=== PATIENT | male | born 1960 | race Caucasian/White ===

== ENCOUNTER 2017-07-26 12:43 | Emergency (ER) | payer OTHER ==
--- NOTE | 2017-07-26 14:33 | ER Document Report ---
HPI - HPI Patient complains to provider of: posterior knee and calf pain Pain Level: 3 Context: Patient is a 56-year-old male presents emergency room complaining of left posterior knee and calf pain. Patient states that he was pushing a truck out of a ditch when he felt some pain and a pop in his posterior knee. Able to fully extend and bend his knee with pain in his posterior calf. Patient states he is able to bear weight on it but with pain. Otherwise healthy male. Follows with Dr. Méndez Past Medical History - Social History Smoking Status: Never Smoker Family History: Reviewed & Not Pertinent Vertical Provider Document - CONSTITUTIONAL Agree With Documented VS: Yes Notes: PHYSICAL EXAM GENERAL: Alert, interacts well. EXTREMITIES: Moves all 4 extremities spontaneously with guarding of the left lower extremity. Full range of motion of the left knee and nontender. Lateral posterior tenderness over the origin point of the gastrocnemius. Compartments soft. no edema, posterior tibialis and dorsalis pedis pulses 2/4 bilaterally. No cyanosis. NEUROLOGICAL: Alert and oriented x4. Normal speech. PSYCH: Normal affect, normal mood. SKIN: Warm, dry, normal turgor. No rashes or lesions noted. - INFECTION CONTROL TRAVEL OUTSIDE OF THE [place] IN LAST 30 DAYS: No - RESPIRATORY O2 Sat by Pulse Oximetry: 96 Course - Re-evaluation Re-evalutation: 07/26/17 15:30 Patient is a 48-year-old male is hemodynamically stable, no acute distress and afebrile. Physical exam benign without any concerns for compartment syndrome. No evidence of a septic joint, gout flare, dislocation, or fracture on exam and imaging. Vitals wnl. At this time, I do not see an indication for labs or further imaging. Will discharge with conservative measures, return precautions, and follow-up recommendations. - Vital Signs Vital signs: Temp Pulse Resp BP Pulse Ox 97.9 F 68 16 137/84 H 96 07/26/17 12:47 07/26/17 12:47 07/26/17 12:47 07/26/17 12:47 07/26/17 12:47 - Diagnostic Test Radiology reviewed: Image reviewed, Reports reviewed Discharge - Discharge Clinical Impression: Calf pain Qualifiers: Laterality: left Qualified Code(s): M79.662 - Pain in left lower leg Condition: Good Disposition: HOME, SELF-CARE Instructions: Use of Crutches ([facility]), Use of Nudi-Ong-Mthhbyt Ibuprofen ([facility]), Muscle Strain ([facility]) Forms: Return to Work Referrals: PEDRO LUIS MÉNDEZ MD [COMMUNITY BASED STAFF] - Follow up in 1 week INA VALDEZ MD [ACTIVE STAFF] - Follow up in 1 week
--- NOTE | 2017-07-26 15:24 | RADIOLOGY REPORT (SQ) ---
EXAM DESCRIPTION: KNEE LEFT 4 VIEW COMPLETED DATE/TIME: 07/26/2017 2:46 pm REASON FOR STUDY: pain, pop sensation, tender left calf COMPARISON: None. NUMBER OF VIEWS: Four views. TECHNIQUE: AP, lateral, and both oblique radiographic images acquired of the left knee. LIMITATIONS: None. FINDINGS: MINERALIZATION: Normal. BONES: No acute fracture or dislocation. No worrisome bone lesions. JOINT: No effusion. SOFT TISSUES: No soft tissue swelling. No radio-opaque foreign body. OTHER: No other significant finding. IMPRESSION: NEGATIVE STUDY OF THE LEFT KNEE. NO RADIOGRAPHIC EVIDENCE OF ACUTE INJURY. TECHNICAL DOCUMENTATION: JOB ID: [id number] [employer]- All Rights Reserved
[2017-07-26 15:49] VITALS: BP 145/82
== END 2017-07-26 15:50 | disposition home or self-care (01) ==
LOC: ER 12:43
DX: M79.662 Pain in left lower leg (principal)
CPT/HCPCS: 99283

== ENCOUNTER → 2019-07-29 | Outpatient (CLI) | payer OTHER ==
[2019-07-29 15:34] LABS: ABSOLUTE BASOPHILS # (AUTO) 0.1 10^3/uL (0.0-0.2); ABSOLUTE EOSINOPHILS # (AUTO) 0.3 10^3/uL (0.0-0.6); ABSOLUTE LYMPHOCYTES (AUTO) 2.4 10^3/uL (0.5-4.7); ABSOLUTE MONOCYTES (AUTO) 0.8 10^3/uL (0.1-1.4); ABSOLUTE NEUT (AUTO) 4.9 10^3/uL (1.7-8.2); BASOPHILS % (AUTO) 0.8 % (0-2); EOSINOPHILS % (AUTO) 3.5 % (0-6); HEMOGLOBIN 16.1 g/dL (13.5-17.0); LYMPHOCYTES % (AUTO) 27.9 % (13-45); MEAN CORPUSCULAR HEMOGLOBIN 31.4 pg (27.0-33.4); MEAN CORPUSCULAR HGB CONC 33.7 g/dL (32.0-36.0); MEAN CORPUSCULAR VOLUME 93 fl (80-97); MONOCYTES % (AUTO) 10.1 % (3-13); PLATELET COUNT 286 10^3/uL (150-450); RED BLOOD COUNT 5.14 10^6/uL (4.35-5.55); RED CELL DISTRIBUTION WIDTH 14.4 % (11.5-14.0); SEGMENTED NEUTROPHILS % (AUTO) 57.7 % (42-78); TOTAL CELLS COUNTED % (AUTO) 100 %; WHITE BLOOD COUNT 8.4 10^3/uL (4.0-10.5)
[2019-07-29 15:49] LABS: ALBUMIN 4.8 g/dL (3.5-5.0); ALKALINE PHOSPHATASE 67 U/L (38-126); ANION GAP 8 (5-19); ASPARTATE AMINO TRANSFERASE 29 U/L (17-59); BILIRUBIN,TOTAL 1.3 mg/dL (0.2-1.3); BLOOD UREA NITROGEN 19 mg/dL (7-20); CALCIUM 9.6 mg/dL (8.4-10.2); CARBON DIOXIDE 27 mmol/L (22-30); CHLORIDE 103 mmol/L (98-107); GLUCOSE 91 mg/dL (75-110); POTASSIUM 4.9 mmol/L (3.6-5.0); TOTAL PROTEIN 7.6 g/dL (6.3-8.2)
--- NOTE | 2019-07-29 18:05 | RADIOLOGY REPORT (SQ) ---
EXAM DESCRIPTION: CT ABD/PELVIS WITH IV ORAL COMPLETED DATE/TIME: 07/29/2019 5:41 pm REASON FOR STUDY: R10.9 UNSPECIFIED ABDOMINAL PAIN R10.9 UNSPECIFIED ABDOMINAL PAIN K57.92 DVTRCLI OF INTEST, PART UNSP, W/O PERF OR ABSCESS W/O COMPARISON: 10/19/2014 CT abdomen pelvis TECHNIQUE: CT scan of the abdomen and pelvis performed using helical scanning technique with dynamic intravenous contrast injection. Patient drank oral contrast. Images reviewed with lung, soft tissue , and bone windows. Reconstructed coronal and sagittal MPR images reviewed. Delayed images for evalua tion of the urinary system also acquired. All images stored on PACS. All CT scanners at this facility use dose modulation, iterative reconstruction, and/or weight based d osing when appropriate to reduce radiation dose to as low as reasonably achievable (ALARA). [facility]: Dose Right [facility]: CareDose [facility]: Dose Right [facility]: Teradose 4D [facility]: [email or web address] CONTRAST TYPE AND DOSE: contrast/concentration: Isovue 350.00 mg/ml; Total Contrast Delivered: 100.0 ml; Total Saline Delivered: 46.5 ml RENAL FUNCTION: Creatinine 0.8 RADIATION DOSE: CT Rad equipment meets quality standard of care and radiation dose reduction techniq ues were employed. CTDIvol: 18.1 - 19.8 mGy. DLP: 2064 mGy-cm.. LIMITATIONS: None. FINDINGS: LOWER CHEST: No significant findings. No nodules or infiltrates. LIVER: Normal size. No masses. No dilated ducts. SPLEEN: Normal size. No focal lesions. PANCREAS: No masses. No significant calcifications. No adjacent inflammation or peripancreatic fluid collections. Pancreatic duct not dilated. GALLBLADDER: Gallstones. No inflammatory changes to suggest cholecystitis. ADRENAL GLANDS: No significant masses or asymmetry. RIGHT KIDNEY AND URETER: No solid masses. Multiple subcentimeter right renal cortical cysts. Multip le right-sided intrarenal nonobstructive calculi, the largest is 2 cm diameter right lower pole kidne y 1,400 Hounsfield units in density. No hydronephrosis or hydroureter. LEFT KIDNEY AND URETER: No solid masses. No significant calcifications. No hydronephrosis or hydr oureter. AORTA AND VESSELS: No aneurysm. No dissection. Renal arteries, SMA, celiac without stenosis. RETROPERITONEUM: No retroperitoneal adenopathy, hemorrhage or masses. BOWEL AND PERITONEAL CAVITY: No masses or inflammatory changes. No free fluid or peritoneal masses. APPENDIX: Normal. PELVIS: No mass. No free fluid. Normal bladder. ABDOMINAL WALL: No masses. No hernias. BONES: Diffuse degenerative disc changes throughout the lumbar spine. OTHER: No other significant finding. IMPRESSION: Right-sided intrarenal nonobstructive calculi. No CT evidence of bowel obstruction. Diffuse degenerative disc changes lumbar spine TECHNICAL DOCUMENTATION: JOB ID: [id number] Quality ID # [id number]: Final reports with documentation of one or more dose reduction techniques (e.g., Au tomated exposure control, adjustment of the mA and/or kV according to patient size, use of iterative reconstruction technique) 2010 [employer]- All Rights Reserved Reading location - IP/workstation name: [email or web address]
== END ==
LOC: RAD 15:01
PROVIDERS: ATTEND Internal Medicine
DX: K57.92 Diverticulitis of intestine, part unspecified, without perforation or abscess without bleeding (principal); R10.9 Unspecified abdominal pain; N20.0 Calculus of kidney
CPT/HCPCS: 36415; 74177; 80053; 82565; 85025

== ENCOUNTER 2019-09-19 14:22 | Emergency (ER) | payer OTHER ==
[2019-09-19 14:55] LABS: APPEARANCE,URINE CLEAR; BILIRUBIN,URINE NEGATIVE (NEGATIVE); COLOR,URINE STRAW; GLUCOSE, URINE NEGATIVE (NEGATIVE); KETONES,URINE NEGATIVE (NEGATIVE); LEUKOCYTE ESTERASE,URINE TRACE (NEGATIVE); NITRITE,URINE NEGATIVE (NEGATIVE); PROTEIN,URINE NEGATIVE (NEGATIVE); URINE SPECIFIC GRAVITY 1.005; UROBILINOGEN,URINE NEGATIVE mg/dL (<2.0)
[2019-09-19 15:15] LABS: ABSOLUTE EOSINOPHILS # (AUTO) 0.3 10^3/uL (0.0-0.6); ABSOLUTE LYMPHOCYTES (AUTO) 1.7 10^3/uL (0.5-4.7); ABSOLUTE MONOCYTES (AUTO) 0.7 10^3/uL (0.1-1.4); ABSOLUTE NEUT (AUTO) 5.4 10^3/uL (1.7-8.2); BASOPHILS % (AUTO) 0.5 % (0-2); EOSINOPHILS % (AUTO) 4.2 % (0-6); HEMOGLOBIN 15.2 g/dL (13.5-17.0); LYMPHOCYTES % (AUTO) 20.8 % (13-45); MEAN CORPUSCULAR HEMOGLOBIN 32.6 pg (27.0-33.4); MEAN CORPUSCULAR HGB CONC 35.5 g/dL (32.0-36.0); MEAN CORPUSCULAR VOLUME 92 fl (80-97); PLATELET COUNT 285 10^3/uL (150-450); RED BLOOD COUNT 4.67 10^6/uL (4.35-5.55); RED CELL DISTRIBUTION WIDTH 14.2 % (11.5-14.0); SEGMENTED NEUTROPHILS % (AUTO) 65.5 % (42-78); TOTAL CELLS COUNTED % (AUTO) 100 %; WHITE BLOOD COUNT 8.3 10^3/uL (4.0-10.5)
[2019-09-19] MEDS ORDERED: METOCLOPRAMIDE HCL ORAL SOLN 10 MG/10 ML UDCUP PO ONE (15:21)
[2019-09-19] MEDS ORDERED: LIDOCAINE 2% VISCOUS SOLN 15 ML UDCUP PO ONE (15:21)
[2019-09-19] MEDS ORDERED: MAG HYDROX/AL HYDROX/SIMETH SUSP 30 ML UDCUP PO ONE (15:21)
[2019-09-19 15:25] LABS: ALBUMIN 3.5 g/dL (3.5-5.0); ALKALINE PHOSPHATASE 56 U/L (38-126); ANION GAP 6 (5-19); ASPARTATE AMINO TRANSFERASE 19 U/L (17-59); BILIRUBIN,TOTAL 0.5 mg/dL (0.2-1.3); BLOOD UREA NITROGEN 26 mg/dL (7-20); CALCIUM 8.4 mg/dL (8.4-10.2); CARBON DIOXIDE 22 mmol/L (22-30); CHLORIDE 110 mmol/L (98-107); CREATINE KINASE 58 U/L (55-170); GLUCOSE 92 mg/dL (75-110); POTASSIUM 3.9 mmol/L (3.6-5.0); TOTAL PROTEIN 5.9 g/dL (6.3-8.2)
--- NOTE | 2019-09-19 15:27 | ER Document Report ---
ED General - General Chief Complaint: Chest Pain > 30 Stated Complaint: CHEST PAIN Time Seen by Provider: 09/19/19 15:10 Primary Care Provider: STEVEN VALDEZ MD [Primary Care Provider] - Follow up in 3-5 days Mode of Arrival: Ambulatory Information source: Patient Notes: 59-year-old male presents to ED for complaint of chest pain. He is alert oriented respirations regular nonlabored speaking in full sentences. He states he went to the urgent care due to a tearing sharp ripping pain in his chest that radiated down his left arm with numbness and tingling he states when he got to the doctor's office his left fingers were cold. He states he took 650 mg of aspirin at home the urgent care gave him for milligrams of nitro sublingual with no results EMS gave him a sublingual nitro and route is still he had no results from that also but now he only has a level 1 pain whereas before it was more than a 3. He states now as long as he sits still his pain is only 1 but if he moves around or tries to pull himself up it becomes a 3 but goes right back down. He denies any nausea vomiting shortness of breath or any pressure is just a tearing feeling. He denies any cardiac history. He states a couple months ago Steven Valdez MD did a CT abdomen pelvis and felt that he had a stone that was retained he thought he might have an infection but it was a kidney stone. Lab work with serial troponins EKG chest x-ray saline lock have all been ordered I have also added a Reglan viscous lidocaine and Maalox. He states he does feel like he has some gas. TRAVEL OUTSIDE OF THE [place] IN LAST 30 DAYS: No - HPI Onset: This morning Onset/Duration: Better Quality of pain: Burning, Other - Tearing burning Severity: Moderate Pain Level: 1 Associated symptoms: Chest pain - Pain to the left arm down to the fingers with numbness and tingling to the fingers. He states the numbness tingling and down the arm has all been relieved at this time Exacerbated by: Movement Relieved by: Remaining still Similar symptoms previously: No Recently seen / treated by doctor: Yes - Related Data Allergies/Adverse Reactions: No Known Allergies Allergy (Verified 09/19/19 14:31) Past Medical History - General Information source: Patient - Social History Smoking Status: Former Smoker Chew tobacco use (# tins/day): No Frequency of alcohol use: Rare Drug Abuse: None Occupation: Site safety and health officer Lives with: Family Family History: Reviewed & Not Pertinent Patient has suicidal ideation: No Patient has homicidal ideation: No - Past Medical History Cardiac Medical History: Reports: None Pulmonary Medical History: Reports: None EENT Medical History: Reports: None Neurological Medical History: Reports: None Endocrine Medical History: Reports: None Renal/ Medical History: Reports: Hx Kidney Stones Malignancy Medical History: Reports None GI Medical History: Reports: None Musculoskeletal Medical History: Reports None Skin Medical History: Reports None Psychiatric Medical History: Reports: None Traumatic Medical History: Reports: None Infectious Medical History: Reports: None Surgical Hx: Negative Past Surgical History: Reports: None Review of Systems - Review of Systems Constitutional: No symptoms reported EENT: No symptoms reported Cardiovascular: Chest pain Respiratory: No symptoms reported Gastrointestinal: No symptoms reported Genitourinary: No symptoms reported Male Genitourinary: No symptoms reported Musculoskeletal: No symptoms reported Skin: No symptoms reported Hematologic/Lymphatic: No symptoms reported Neurological/Psychological: Numbness, Tingling -: Yes All other systems reviewed and negative Physical Exam - Vital signs Vitals: Pulse Ox 100 09/19/19 14:23 Interpretation: Normal - General General appearance: Appears well, Alert - HEENT Head: Normocephalic, Atraumatic Eyes: Normal Pupils: PERRL - Respiratory Respiratory status: No respiratory distress Chest status: Tender, Pain on movement Breath sounds: Normal Chest palpation: Normal - Cardiovascular Rhythm: Regular Heart sounds: Normal auscultation Murmur: No - Abdominal Inspection: Normal Distension: No distension Bowel sounds: Hyperactive Tenderness: Tender Organomegaly: No organomegaly - Back Back: Normal, Nontender - Extremities General upper extremity: Normal inspection, Nontender, Normal color, Normal ROM, Normal temperature General lower extremity: Normal inspection, Nontender, Normal color, Normal ROM, Normal temperature, Normal weight bearing. No: Shira's sign - Neurological Neuro grossly intact: Yes Cognition: Normal Orientation: AAOx4 [place] Coma Scale Eye Opening: Spontaneous Gilberto Coma Scale Verbal: Oriented [place] Coma Scale Motor: Obeys Commands Gilberto Coma Scale Total: 15 Speech: Normal Motor strength normal: LUE, RUE, LLE, RLE Sensory: Normal - Psychological Associated symptoms: Normal affect, Normal mood - Skin Skin Temperature: Warm Skin Moisture: Dry Skin Color: Normal Course - Re-evaluation Re-evalutation: 09/19/19 18:36 Patient states his chest pain was completely relieved with GI cocktail of Reglan Maalox and viscous lidocaine. He was treated with nitro at urgent care and in the EMS. He states they did not relieve his pain. He states he had already had aspirin at home and that did not relieve his pain but the GI cocktail completely relieved his pain. He does have 2- troponins. Chest x-ray was negative. Patient denies any pain at all at this time. Dates he will follow-up with Steven Valdez MD by telephone to schedule a follow-up appointment blood pressure is 144/80 pulse is 52. He states it has been that. O2 sat is 96% respirations are 14. He denies any discomfort, dizzy, shortness of breath, or cough at this time. I have given him a copy of his lab results and his chest x- ray to follow-up with Steven Valdez MD. Have recommended he start on Pepcid until he follows up with his primary doctor. I have given him instruction on antiacids such as Maalox as well. I have discussed this with Dr. Sandy will go and see the patient. - Vital Signs Vital signs: Temp Pulse Resp BP Pulse Ox 98.3 F 54 L 16 126/80 H 95 09/19/19 19:05 09/19/19 19:05 09/19/19 19:05 09/19/19 19:05 09/19/19 19:05 - Laboratory Result Diagrams: 09/19/19 14:54 09/19/19 14:54 Laboratory results interpreted by me: 09/19/19 09/19/19 09/19/19 14:30 14:54 14:54 RDW 14.2 H Chloride 110 H BUN 26 H Total Protein 5.9 L Ur Leukocyte Esterase TRACE H - Diagnostic Test Radiology reviewed: Image reviewed, Reports reviewed Discharge - Discharge Clinical Impression: Chest pain Qualifiers: Chest pain type: unspecified Qualified Code(s): R07.9 - Chest pain, unspecified Condition: Stable Disposition: HOME, SELF-CARE Additional Instructions: CHEST PAIN OF UNCLEAR CAUSE: The exact cause of your chest pain isn't clear. Fortunately, there is no evidence of a dangerous medical condition. Further testing may be required to find the source of the pain. Most often, we find that this pain is coming from the chest wall -- the muscles or rib joints in the chest. But chest pain can come from the lung and lung lining, the esophagus, the heart valves or heart lining, and even the stomach or gallbladder. Rest. Eat lightly until the pain is gone. We may prescribe medicine for pain and inflammation. You should call the physician immediately if the pain radiates to the shoulder, jaw or arms; if you start to run a fever or develop a cough; or if you develop shortness of breath, or other new or alarming symptoms. NORMAL EXAM AND WORKUP: At this time, your examination and workup show no significant abnormality. No significant abnormal physical findings were noted. All laboratory, EKG, and imaging (x-ray, CT scans, ultrasound) studies that were ordered show no significant abnormality. Although your examination and all studies that were ordered showed no significant abnormal finding, there are no examinations and no studies that are 100% accurate. There is always the possibility that some abnormality could exist and not be detected with physical examination or within the limits and capabilities of laboratory and other studies. You should return or follow up as you were instructed on your visit today for further evaluation if your symptoms do not resolve. ACID REFLUX DISEASE (GERD): Gastro-Esophageal Reflux Disease (GERD) is caused by stomach acid refluxing back up into the esophagus. The valve at the end of the esophagus may be weak. This is common in persons with a hiatal hernia. GERD symptoms can include indigestion, chest pain, heartburn, or food "sticking." Certain foods, alcohol, and aspirin can make GERD worse. Treatment depends on the severity. Usually, antacids or acid-suppressing medicines are used. When the esophagus is acutely inflamed, the physician will often prescribe membrane-protective drugs such as Carafate. Some patients benefit from medication such as Reglan that tightens the valve at the top of the stomach. Avoid those foods that bring on your symptoms. For many people, these foods are coffee, chocolate, onions, garlic, and carbonated drinks. Don't use alcohol, aspirin, caffeine, or tobacco. Don't eat late at night -- within 4 hours of bedtime. Don't over-eat. If necessary, elevate the head of your bed about 4 inches so that stomach acid will not roll up into your esophagus. Call the doctor if you develop severe chest pain, inability to swallow fluids, fever, or worsening symptoms. ASPIRIN: Aspirin has been shown to have a beneficial effect on blood circulation by reducing the clotting effect of platelets in the blood. These beneficial effects can be achieved by taking just a single baby (81 mg) aspirin a day. It is recommended that any person over the age of forty take a single baby aspirin every day for heart and brain circulation, unless you are allergic to aspirin or have some significant bleeding disorder. It is strongly recommended that people who have proven cardiac or blood circulation disturbances should take a baby aspirin every day. NITRATES: Nitroglycerin and related longer-acting nitrate medications are used to prevent or treat attacks of angina. These medicines dilate blood vessels, decreasing the work of the heart, and improving its supply of oxygen. Many different forms are available, including sublingual tablets (used under the tongue), sprays, skin patches, and long-acting pills. If the particular form of medication you have been given is not working well for you, contact your doctor. Long-acting forms: Take exactly as prescribed. Sudden stopping of medication can provoke increased attacks. Sublingual tabs or spray: A headache will usually occur with use. Sit or lie while waiting for the pain to go away. If angina doesn't respond to three doses (five minutes apart), call for emergency assistance. ANTACID THERAPY: You have been instructed to start antacid therapy. Antacids directly neutralize stomach acid. This is useful for acid irritation of the esophagus, gastritis, and ulcers. You should take two tablespoons of antacid one hour after each meal and three hours after each meal. If you are not eating, take the antacid every two hours. If you are using a concentrate (such as Maalox TC), use only one tablespoon. Many antacids affect the bowels. The most common problem is diarrhea. In this case, a pure aluminum hydroxide antacid (such as AlternaGel) can be substituted for some or all doses. If the problem is constipation, add a teaspoon of Milk of Magnesia to each dose. Call the doctor if you experience continued diarrhea or constipation, or if you develop lightheadedness, bloody stool or vomitus, severe abdominal pain, or black stool. Acid-Suppressing Medication You have a prescription for medicine which reduces the stomach's secretion of acid. Examples include Zantac, Tagament, and Pepcid. These drugs are often used to allow healing of ulcers or esophagitis. They may be needed to prevent recurrence of ulcers in some patients, or to prevent damage from acid reflux in the esophagus. Take all medication as prescribed, even after the pain is gone. Regular antacids may be added as needed if you have symptoms while taking this medicine. These medications sometimes are prescribed for allergic reactions because they have anti-histaminic effects and relieve the rash and itching of the reaction. There are usually no side effects from this medication. But, in rare cases and particularly in the elderly, serious problems can occur. Contact your doctor if there is fever, rash, hallucinations, confusion, or unusual bruising. Contact your doctor at once if you develop lightheadedness, black or bloody stool, or bloody vomitus. Reglan (Metoclopramide) Reglan has been prescribed. This medicine affects the stomach and intestines. It can be used to treat nausea and vomiting, to prevent reflux of stomach acid up into the esophagus, or to increase the contractions of the stomach and intestines. It is often prescribed for esophagitis, and for paralysis of the stomach in diabetics. Reglan can cause either mild restlessness or drowsiness. You should contact the doctor at once if you become extremely restless, anxious, or cannot sleep, or if you develop uncontrollable motions of the lips, tongue, or jaw. Do not take alcohol with this medicine. Do not drive or operate machinery until you have been taking this medicine long enough to know how it affects you. Call the doctor if you develop abdominal pains, lightheadedness, black stool, or blood in the stool or vomitus. FOLLOW-UP CARE: If you have been referred to a physician for follow-up care, call the physician s office for an appointment as you were instructed or within the next two days. If you experience worsening or a significant change in your symptoms, notify the physician immediately or return to the Emergency Department at any time for re-evaluation. Prescriptions: Famotidine [Pepcid 20 mg Tablet] 20 mg PO BID #12 tablet Forms: Elevated Blood Pressure, Return to Work Referrals: STEVEN VALDEZ MD [Primary Care Provider] - Follow up in 3-5 days
[2019-09-19 15:37] LABS: CREATINE KINASE MB 0.97 ng/mL (<4.55)
[2019-09-19 15:45] LABS: TROPONIN I < 0.012 ng/mL
--- NOTE | 2019-09-19 15:49 | RADIOLOGY REPORT (SQ) ---
EXAM DESCRIPTION: CHEST 2 VIEWS IMAGES COMPLETED DATE/TIME: 09/19/2019 3:30 pm REASON FOR STUDY: chest pain COMPARISON: None. EXAM PARAMETERS: NUMBER OF VIEWS: two views TECHNIQUE: Digital Frontal and Lateral radiographic views of the chest acquired. RADIATION DOSE: NA LIMITATIONS: none FINDINGS: LUNGS AND PLEURA: No opacities, masses or pneumothorax. No pleural effusion. MEDIASTINUM AND HILAR STRUCTURES: No masses or contour abnormalities. HEART AND VASCULAR STRUCTURES: Heart normal size. No evidence for failure. BONES: No acute findings. HARDWARE: None in the chest. OTHER: No other significant finding. IMPRESSION: NO ACUTE RADIOGRAPHIC FINDING IN THE CHEST. TECHNICAL DOCUMENTATION: JOB ID: [id number] 2010 [employer]- All Rights Reserved Reading location - IP/workstation name: [email or web address]
--- NOTE | 2019-09-19 18:45 | ER Document Report ---
Doctor's Note Notes: 09/19/19 18:44 Patient seen in conjunction with nurse practitioner, please see her note correlate with mine. In short this 59-year-old gentleman, after eating, developed a tearing chest pain. He has some relief with nitro, complete relief with a GI cocktail. He denied any real associated symptoms. He had a work-up here, including blood pressures in both arms, 2 serially negative troponins. I went in and personally evaluated the patient. He is chest pain-free. His pain has not returned. He has equal peripheral pulses. His heart is regular rate and rhythm, his lungs are clear. We talked about the fact that he will need further evaluation for this pain, and any return of this pain should prompt him to return. He voiced understanding and will follow-up closely with primary care tomorrow.
[2019-09-19 18:56] VITALS: BP 126/80
--- NOTE | 2019-09-19 21:25 | EKG REPORT ---
SEVERITY:- ABNORMAL ECG - SINUS RHYTHM NONSPECIFIC T ABNORMALITIES, INFERIOR LEADS : Confirmed by: Kristin Burgess MD 19-Sep-2019 21:24:04
== END 2019-09-19 19:05 | disposition home or self-care (01) ==
LOC: ER 14:22
DX: R07.9 Chest pain, unspecified (principal); M79.602 Pain in left arm; R20.0 Anesthesia of skin; Z87.891 Personal history of nicotine dependence
CPT/HCPCS: 93005; 99285; 36415; 82553; 82550; 83690; 85025; 80053; 81001; 84484; 71046; 93010; J3490

== ENCOUNTER → 2019-10-23 | Outpatient (CLI) | payer OTHER ==
--- NOTE | 2019-10-23 13:29 | DRAGON STRESS TEST REPORT ---
The patient underwent a stress/rest, single isotope SPECT Imaging with exercise stress and gated SPECT imaging on OCTOBER 29 for evaluation of chest pain. The patient underwent treadmill exercise using the Pedro protocol, completing 10:31 minutes and completing an estimated workload of 13.4 metabolic equivalents (METS). The test was terminated due to fatigue. The heart rate was 56 beats per minute at baseline and increased to 153 beats at peak exercise, which was 96% of the maximum predicted heart rate. The rest blood pressure was 130/71 mm/Hg and increased to 209/78 mm/Hg, which is a normal response. The patient had no symptoms during the procedure. The resting electrocardiogram demonstrated NSR. There was 1-[address] depression in the inferolateral leads. Myocardial perfusion imaging was performed at rest following the injection of 14.4 mCi of sestamibi. At peak exercise, the patient was injected with 44.6 mCi of sestamibi and exercise was continued for minute(s). Gating post-stress tomographic imaging was performed 60 minutes after stress. Findings The overall quality of the study is excellent. Raw images demonstrate no significant artifacts. Left ventricular cavity is noted to be mildly enlarged on the rest studies. Resting SPECT images demonstrate homogeneous tracer distribution throughout the myocardium. The stress images reveal a small, of mild intensity perfusion defect in the basal anterior wall and a small, of mild intensity perfusion defect in the inferoapical wall. Gated SPECT imaging reveals normal myocardial thickening and wall motion. The left ventricular ejection fraction was calculated to be 50% Impression -Myocardial perfusion imaging is abnormal. -There is scintigraphic evidence of mild ischemia in the basal anterior segment and in the inferoapical segment. -Overall left ventricular systolic function was low normal without wall motion abnormalities. -There are no prior studies for comparison. [facility]
== END ==
LOC: RAD 06:31
PROVIDERS: ATTEND Internal Medicine Cardiovascular Disease
DX: R07.89 Other chest pain (principal); R94.31 Abnormal electrocardiogram [ECG] [EKG]
CPT/HCPCS: 93017; 78451; A9500; Q9969